=== PATIENT | male | born 1960 | race Caucasian/White ===

== ENCOUNTER 2018-06-30 01:45 | Emergency (ER) | payer OTHER ==
[~2018-06-30] VITALS: Ht 177.8 cm; Wt 82.0 kg
[2018-06-30] MEDS ORDERED: ZIPRASIDONE 20 MG INJ IM ONE ×2 (02:18→02:30)
--- NOTE | 2018-06-30 04:34 | NUR ---
PT BIB [facility] FOR ACUTE ETOH INTOXICATION. PT FOUND IN STREET AND BROUGHT IN. VSS UPON ARRIVAL TO [facility].
--- NOTE | 2018-06-30 05:22 | NUR ---
PT STANDS TO VOID WITH ONE ASSIST. PT ASSISTED BACK INTO BED AND PROVIDED WARM BLANKET PER REQUEST.
--- NOTE | 2018-06-30 05:50 | NUR ---
PT ASLEEP IN GOWN IN [place]. PT HAS CALL LIGHT WITHIN REACH AND IS IN DIRECT OBSERVATION OF NURSE STATION.
[2018-06-30 06:41] VITALS: BP 138/91
--- NOTE | 2018-06-30 07:17 | NUR ---
RECEIVED BEDSIDE REPORT FROM ELISABETH ABBOTT, PLAN OF CARE DISCUSSED. PT UP TO USE BATHROOM, GAIT UNSTEADY, BACK TO BED, WARM BLANKETS GIVEN, PT DENIES ANY NEEDS AT ATTHIS TIME
--- NOTE | 2018-06-30 08:29 | NUR ---
PT SLEEPING RESP EVEN AND UNLABORED
--- NOTE | 2018-06-30 09:12 | NUR ---
LATE ENTRY 0845: PT AMBULATORY WITH ONE PERSON STAND BY TO BATHROOM. PT STILL UNSTEADY GAIT. REPORTED TO PRIMARY RN.
--- NOTE | 2018-06-30 09:15 | NUR ---
WATER GIVEN TO PT
--- NOTE | 2018-06-30 09:20 | NUR ---
CARE FOR DC PROVIDED. PT DRINKING WATER, COOPERATIVE WITH CARE. NO IV TO DC, REVIEWED DC INSTRUCTIONS, PT LEFT AMB, GAIT STEADY
== END 2018-06-30 09:37 | disposition home or self-care (01) ==
LOC: ED 09:10
DX: F10.120 Alcohol abuse with intoxication, uncomplicated (principal); F17.200 Nicotine dependence, unspecified, uncomplicated
CPT/HCPCS: 99283; J3486

== ENCOUNTER 2018-07-13 00:13 | Emergency (ER) | payer SELFPAY ==
[~2018-07-13] VITALS: Ht 167.6 cm; Wt 84.0 kg
--- NOTE | 2018-07-13 00:23 | NUR ---
Dr. Link at bedside to evaluate pt.
[2018-07-13 00:59] LABS: ALANINE AMINOTRANSFERASE 26 U/L (12-78); ALBUMIN 3.7 g/dL (3.4-5.0); ANION GAP 8 mmol/L (5-15); CALCIUM 7.9 mg/dL (8.5-10.1); CHLORIDE 115 mmol/L (98-107); SALICYLATE LEVEL 4.6 mg/dL (2.8-20.0)
[2018-07-13 01:02] LABS: MEAN CORPUSCULAR HEMOGLOBIN 32.6 pg (27.5-34.5); MEAN CORPUSCULAR HGB CONC 34.3 g/dL (33.2-36.2); MEAN PLATELET VOLUME 6.9 fL (7.4-10.4); PLATELET COUNT 336 x10^3/uL (130-400); RED BLOOD COUNT 5.55 x10^6/uL (4.38-5.82); RED CELL DISTRIBUTION WIDTH 14.9 % (9.4-14.8)
[2018-07-13 01:09] LABS: ALKALINE PHOSPHATASE 63 U/L (45-117); BILIRUBIN,TOTAL 0.1 mg/dL (0.2-1.0); CREATININE 1.11 mg/dL (0.7-1.3); TOTAL PROTEIN 7.3 g/dL (6.4-8.2)
[2018-07-13 01:12] LABS: ACETAMINOPHEN < 2 mcg/mL (10-30)
--- NOTE | 2018-07-13 01:12 | NUR ---
report received from [facility].
--- NOTE | 2018-07-13 01:14 | NUR ---
lab called. alcohol level is 0.438. edmd notified.
[2018-07-13 01:15] LABS: BASOPHILS # (AUTO) 0.02 x10^3/uL (0-0.1); BASOPHILS % (AUTO) 0 % (0-1); EOSINOPHILS # (AUTO) 0.13 x10^3/uL (0-0.4); EOSINOPHILS % (AUTO) 2 % (1-7); LYMPHOCYTES # (AUTO) 1.97 x10^3/uL (1-3.4); LYMPHOCYTES % (AUTO) 26 % (22-44); MD SCAN; MONOCYTES # (AUTO) 0.61 x10^3/uL (0.2-0.8); MONOCYTES % (AUTO) 8 % (2-9); NEUTROPHILS % (AUTO) 65 % (42-75)
--- NOTE | 2018-07-13 02:19 | NUR ---
pt sleeping in [facility]. resps even and unlabored. all monitors in place. call light within reach.
[2018-07-13 03:17] VITALS: BP 128/88
--- NOTE | 2018-07-13 03:17 | NUR ---
pt sleeping in gurney. resps even and unlabored. bp/spo2 monitors in place. call light within reach. urinal at bedside as well.
--- NOTE | 2018-07-13 03:51 | NUR ---
PT AMB TO BR AND BACK TO ROOM WITH STEADY GAIT.
--- NOTE | 2018-07-13 04:08 | NUR ---
pt requesting ativan and pa/edmd denied. pt c/o it. pa explained about it when pt dc. pt given dc instructions. pt's aox4. resps even and unlabored. pt amb to dc with steady gait. no acute distress at dc.
== END 2018-07-13 04:09 | disposition home or self-care (01) ==
LOC: EDBD 00:13 → ED 01:02 → MERGE 01:02 → ED 04:09
DX: F10.120 Alcohol abuse with intoxication, uncomplicated (principal); Z72.9 Problem related to lifestyle, unspecified; Z87.19 Personal history of other diseases of the digestive system
CPT/HCPCS: 36415; 80053; 80307; 82140; 85025; 99283